=== PATIENT | male | born 2000 | race Caucasian/White ===

== ENCOUNTER 2021-05-31 17:17 | Emergency (ER) | payer BC, OTHER ==
[2021-05-31 19:23] LABS: CORONAVIRUS COVID-19 NAA POSITIVE (NEGATIVE)
== END 2021-05-31 19:42 | disposition home or self-care (01) ==
LOC: JD.ED 17:17
DX: S90.31XA Contusion of right foot, initial encounter (principal); U07.1 COVID-19; I10 Essential (primary) hypertension; W20.8XXA Other cause of strike by thrown, projected or falling object, initial encounter; Y99.0 Civilian activity done for income or pay
CPT/HCPCS: 0240U; 73630; 99283

== ENCOUNTER 2022-01-31 01:26 | Emergency (ER) | payer OTHER, BC ==
[2022-01-31] MEDS ORDERED: Lactated Ringers 1,000 ML IV ONE (02:45)
[2022-01-31] MEDS ORDERED: Lactated Ringers 1,000 ML IV SCH (03:00)
[2022-01-31] MEDS ORDERED: Sodium Chloride 0.9% 10 ML Syringe FLUSH ONE (03:56)
[2022-01-31] MEDS ORDERED: Iopamidol 612 MG/ML 100 ML Bottle IVPUSH ONE (03:56)
== END 2022-01-31 05:35 | disposition home or self-care (01) ==
LOC: JD.ED 01:26
DX: S01.81XA Laceration without foreign body of other part of head, initial encounter (principal); S80.812A Abrasion, left lower leg, initial encounter; S80.811A Abrasion, right lower leg, initial encounter; I10 Essential (primary) hypertension; V59.9XXA Occupant (driver) (passenger) of pick-up truck or van injured in unspecified traffic accident, initial encounter; Y92.410 Unspecified street and highway as the place of occurrence of the external cause
CPT/HCPCS: 36415; 70450; 71260; 72125; 73552; 73590; 74177; 80053; 80307; 81001; 85025; 96360; 96361; 99284; J3490; J7120; Q9967; 99283